=== PATIENT | female | born 1985 | race Two or more races ===

== ENCOUNTER 2018-05-26 08:38 | Outpatient (CLI) | payer OTHER ==
[~2018-05-26 08:38] MED LIST: DOCUSATE SODIU100 MG PO; Mylicon 125MG PO; OXYC1TAB9 PO; PRENATE ADVANCE PO
== END 2018-05-26 08:42 | disposition home or self-care (01) ==
LOC: SONOGRAMA 08:38
DX: E04.1 Nontoxic single thyroid nodule (principal)

== ENCOUNTER → 2020-03-06 | Outpatient (CLI) | payer OTHER | END | disposition home or self-care (01) | LOC: PRENATAL 13:28 | PROVIDERS: ATTEND Obstetrics & Gynecology | DX: O99.89 Other specified diseases and conditions complicating pregnancy, childbirth and the puerperium (principal); O09.522 Supervision of elderly multigravida, second trimester; O34.211 Maternal care for low transverse scar from previous cesarean delivery ==